=== PATIENT | female | born 1970 | race Caucasian/White ===

== ENCOUNTER 2019-02-08 10:17 | Outpatient (REF) | payer BC, SELFPAY ==
--- NOTE | 2019-02-08 10:00 | PAPFT_PTH ---
PATIENT: Carmen Casillas LOC: [facility] U#:[id number] AGE/SX: 49/F ROOM: RE02/08/[address]: JOSE JUAN Newman : 1970 BED: DIS: 02/08/2019 SPEC #: [id number] RECD: 02/08/19 12:48 STATUS: LAVERNE REQ #: [id number] LESLY: 02/08/19 10:[address]: Nory Varghese DEPT: [facility] Cytology RECD BY: Sylvia Villareal ENTERED: 02/08/19 12:49 SP TYPE: PAPFT OTHR DR: Ivy Troncoso Tissues: 1 - CX/ENDOCX FOR PAP SMEARS Procedures: PAP THIN PREP/UVM Screening HPV DNA PROBE Comments: [id number]
== END 2019-02-08 10:37 ==
LOC: LBN 10:17
PROVIDERS: PCP Nurse Practitioner Family; Visit Provider Nurse Practitioner Family
DX: Z12.4 Encounter for screening for malignant neoplasm of cervix (principal); Z11.51 Encounter for screening for human papillomavirus (HPV)
CPT/HCPCS: 88142; 87624

== ENCOUNTER 2019-03-09 01:40 | Outpatient (CLI) | payer BC, SELFPAY ==
--- NOTE | 2019-03-09 07:30 | DI.MAMMO_ITS ---
EXAM: MAMMO SCREENING CLINICAL HISTORY: Screening, Z12.39. TECHNIQUE: Mammograms were interpreted according to the usual protocol including computer analysis w ith CAD system, tomosynthesis and C-view imaging. COMPARISON: [id number] FINDINGS: The breasts are heterogeneously dense, which may obscure small masses, breast density category C. Th ere are no suspicious masses or microcalcifications. There are no significant changes in comparison w ith the prior images. IMPRESSION: BI-RADS Cat 1 - Negative Breast Density - Category C - Heterogeneously dense
== END 2019-03-09 02:00 ==
PROVIDERS: PCP Nurse Practitioner Family; Visit Provider Nurse Practitioner Family
DX: Z12.31 Encounter for screening mammogram for malignant neoplasm of breast (principal)
CPT/HCPCS: 77063; 77067

== ENCOUNTER 2020-04-07 03:50 | Outpatient (CLI) | payer BC, SELFPAY ==
--- NOTE | 2020-04-07 07:40 | DI.MAMMO_ITS ---
EXAM: MG MAMMO SCREENING CLINICAL HISTORY: screening TECHNIQUE: Bilateral full field digital CC and MLO mammographic images were obtained with 3D tomosyn thesis and utilizing computer aided detection (CAD). COMPARISON: Available for comparison. FINDINGS: Masses/Architectural Distortion: None seen. Microcalcifications: No suspicious pleomorphic-type are seen. Skin Thickening/Nipple Retraction: None. IMPRESSION: 1. No significant interval change with no specific features of malignancy noted. 2. Unless there is more urgent need, screening mammography is recommended, as per [place] guidelines. BI-RADS Category 1 - Negative Breast Density - Category C - Heterogeneously dense The mammogram demonstrates the patient's breast tissue is dense. Dense breast tissue is very common a nd is not abnormal but dense breast tissue can make it harder to find cancer on a mammogram. Also, de nse breast tissue may increase their breast cancer risk. This information about the result of the [facility] mogram report was provided to the patient to raise their awareness. Use this report when you speak wi th the patient about their risks for breast cancer, which includes their family history. At that time , you may recommend for more screening tests (Ultrasound or MRI) as they might be useful based on the ir risk. A negative radiographic report should not delay biopsy if a dominant or clinically suspicious mass is present. Up to ten percent of cancers are not identified on mammography. A negative report may reinforce clinical impression. Adenosis and dense breasts may obscure an underlying neoplasm. False positive reports average 6 to 10%. Patient will receive a letter notifying them of these results.
== END 2020-04-07 04:10 ==
PROVIDERS: PCP Nurse Practitioner Family; Visit Provider Nurse Practitioner Family
DX: Z12.31 Encounter for screening mammogram for malignant neoplasm of breast (principal)
CPT/HCPCS: 77063; 77067

== ENCOUNTER 2020-04-17 15:24 | Outpatient (REF) | payer BC, SELFPAY ==
[2020-04-20 14:49] LABS: Patient Race White; SARS-CoV-2 RNA Undetected (Undetected); SARS-CoV-2 Specimen Source Nasopharynx
== END 2020-04-17 15:44 ==
LOC: NCHCN 15:24
PROVIDERS: PCP Nurse Practitioner Family; Visit Provider Nurse Practitioner Family
DX: Z20.828 Contact with and (suspected) exposure to other viral communicable diseases (principal)
CPT/HCPCS: U0003

== ENCOUNTER 2020-05-18 02:19 | Outpatient (CLI) | payer BC, SELFPAY ==
[2020-05-19 14:50] LABS: COVID-19 RT-PCR UVMMC Result Negative (Negative)
== END 2020-05-18 02:39 ==
PROVIDERS: PCP Nurse Practitioner Family; Visit Provider Surgery
DX: Z11.59 Encounter for screening for other viral diseases (principal); Z01.818 Encounter for other preprocedural examination
CPT/HCPCS: U0003

== ENCOUNTER 2020-05-22 07:57 | Day surgery (SDC) | payer BC, SELFPAY ==
--- NOTE | 2020-05-22 06:54 | W.COLOREPORT ---
Date of service: 05/22/20 Time of Service: : Colonoscopy Report Date of procedure: 05/22/20 Pre-op diagnosis general: Colon Cancer Screening Post-op diagnosis procedure note: other (ascending polyp and mild diverticulosis) Procedure: Colonoscopy with polypectomy Surgeon: Jayleen Cuevas Anesthesia proc note operative: other (General/ASA 2/Noman Lopez CRNA) Estimated blood loss (mL): 3 Pathology: other (Ascending colon polyp) Complications: None Disposition: same day Indications: The patient is here for Colonoscopy pre-op. She has no family history of colon cancer. She has not had any bowel habit changes. -Discussed colonoscopy bowel prep as well as the procedure. Discussed possible complications of the procedure to include bleeding, pain, perforation, missed small lesion/polyp, sore throat, aspiration and adverse reaction to the medications. Questions were answered to patient?s satisfaction. No guarantees were implied or given. Prep: Miralax/Dulcolax Procedure Start Time: : Procedure End Time: :55 Retraction Time: 14 minutes Findings: 1 sessile polyp in the ascending colon oposite the ileocecal valve Procedure Description: After informed consent was obtained the patient was taken to the procedure room and placed in a left decubitous position. Monitors were applied and a time out was done. The patients name, date of , procedure, allergies to medications and metal in their body was reviewed. The patient was then sedated. Once sedated and comfortable a rectal exam was done. External exam was normal. Internal exam revealed a normal sphincter tone and no palpable masses. The scope was then introduced and retro-flexed. No internal hemorrhoids were identified. The scope was then advanced to the cecum without difficulty. The ileocecal valve and appendiceal orifice were identified. The prep was adequate. The scope was then slowly retracted over 14 minutes back into the rectum. Polyps were removed with cold forceps in the ascending colon. The polyp was sessile and <1 cm in size. There was mild diverticulosis of the sigmoid colon. The scope was removed and the patient was woken up and taken back to Same day surgery in stable condition. The patient tolerated the procedure well and there were no immediate complications. Follow up: The patient should follow up in 3-5 years unless they develop changes in bowel habits or other new gastrointestinal complaints.
--- NOTE | 2020-05-22 06:55 | W.PM.DSUDISC ---
Discharge Plan Disposition Patient Disposition: HOME Condition: Good Discharge Details Reason For Visit: Colon Cancer Screening Attending Provider: Jayleen Cuevas Primary Care Provider: Ivy Troncoso Home Meds and New Rx's Prescriptions: Continued sertraline 25 mg tablet 25 mg PO DAILY Qty: 90 RF: 3 Discontinued polyethylene glycol 3350 17 gram/dose powder 238 g PO ONCE Qty: 238 RF: 0 bisacodyl [Dulcolax (bisacodyl)] 5 mg tablet,delayed release (DR/EC) 5 mg PO ONCE Qty: 4 RF: 0 Discharge Instructions Instructions: Colorectal Polyps (DC), Diverticulosis (DC) Additional Instructions: Findings: 1 flat polyp mild diverticulosis Follow up: 3-5 years Please call if you develop: fevers >101.5 Nausea or Vomiting Abdominal pain that is not transient DAY SURGERY UNIT POST ENDOSCOPY INSTRUCTIONS 1. Because there will be medication in your system for the next 24 hours, you may feel a little sleepy. Your coordination will be affected. Therefore: a. Do not drive or operate dangerous equipment for 24 hours. b. Do not drink alcohol beverages for 24 hours (not even beer). c. Plan to go home and rest for the day. 2. Generally there are no restrictions on your activity after a day or so has gone by, but you may feel a bit fatigued for a few days. 3 After you arrive home you may have a light meal and return to a normal diet as you can tolerate it without feeling sick to your stomach. 4. After surgery, you may feel pain or discomfort. This should be only transient, but if it persists please contact your doctor. 5. If there are any questions regarding the findings of your procedure, please feel free to contact your doctor. 6. If you are unable to contact your doctor with a problem, contact the hospital at [phone]. 7. Continue all your regular medications unless directed otherwise. I understand the above instructions and have no questions. Signature of Patient or Responsible Adult Escort Date/Time Name of Responsible Adult Escort Signature of Nurse Date/Time Activity:: Activity as Tolerated Diet:: High Fiber diet Discharge Orders Discharge Orders: Discharge Order (Routine); Ordered 05/22/20 Ordered By: Jayleen Cuevas
[2020-05-22 08:20] VITALS: BP 111/62; PULSE 92; RESP 18; TEMP 36.9; O2SAT 96
[2020-05-22] MEDS: Lactated Ringers 1,000 ML 80 ML IV (08:51)
--- NOTE | 2020-05-22 09:34 | BOWEL_PTH ---
PATIENT: Carmen Casillas LOC: [facility] U#:[id number] AGE/SX: 50/F ROOM: RE05/22/[address]: Jayleen Cuevas MD : 1970 BED: DIS: 05/22/2020 SPEC #: [id number] RECD: 05/22/20 12:54 STATUS: LAVERNE REQ #: [id number] LESLY: 05/22/20 09:[address]: Jayleen Cuevas DEPT: Surgical Specimen RECD BY: Sylvia Villareal ENTERED: 05/22/20 12:54 SP TYPE: Bowel OTHR DR: Ivy Troncoso Tissues: 1 - BIOPSY BOWEL Procedures: GROSS AND MICRO LEVEL 4 Comments: [id number]
[2020-05-22 10:30] VITALS: BP 109/68; PULSE 74; RESP 16; TEMP 36.1; O2SAT 100
== END 2020-05-22 10:47 | disposition home or self-care (01) ==
LOC: SUR 07:57
PROVIDERS: PCP Nurse Practitioner Family; Visit Provider Surgery
PROC: 0DJD8ZZ Inspection of Lower Intestinal Tract, Via Natural or Artificial Opening Endoscopic (ICD-10-PCS; CPT 45378; principal; 2020-05-22 09:30)
DX: Z12.11 Encounter for screening for malignant neoplasm of colon (principal); D12.2 Benign neoplasm of ascending colon; K57.30 Diverticulosis of large intestine without perforation or abscess without bleeding
CPT/HCPCS: 45380; 81025; 88305

== ENCOUNTER 2020-10-23 11:59 | Outpatient (REF) | payer BC, SELFPAY ==
[2020-10-24 11:24] LABS: COVID-19 RT-PCR UVMMC Result Negative (Negative)
== END 2020-10-23 12:00 | disposition home or self-care (01) ==
LOC: NCHCN 11:59
PROVIDERS: PCP Nurse Practitioner Family; Visit Provider Nurse Practitioner Family
DX: Z20.822 Contact with and (suspected) exposure to COVID-19 (principal)
CPT/HCPCS: U0003

== ENCOUNTER 2021-08-30 14:28 | Outpatient (REF) | payer BC, SELFPAY ==
--- NOTE | 2021-08-30 14:00 | PAPFT_PTH ---
PATIENT: Carmen Casillas LOC: [facility] U#:[id number] AGE/SX: 51/F ROOM: RE08/30/[address]: JOSE JUAN Newman : 1970 BED: DIS: 08/30/2021 SPEC #: [id number] RECD: 08/30/21 17:24 STATUS: LAVERNE REQ #: [id number] LESLY: 08/30/21 14:[address]: Nory Varghese DEPT: [facility] Cytology RECD BY: Sylvia Villareal ENTERED: 08/30/21 17:24 SP TYPE: PAPFT OTHR DR: Ivy Troncoso Tissues: 1 - CX/ENDOCX FOR PAP SMEARS Procedures: PAP THIN PREP/UVM Screening HPV DNA PROBE Comments: [id number]
== END 2021-08-30 14:29 | disposition home or self-care (01) ==
LOC: LBN 14:28
PROVIDERS: PCP Nurse Practitioner Family; Visit Provider Nurse Practitioner Family
DX: Z12.4 Encounter for screening for malignant neoplasm of cervix (principal); Z11.51 Encounter for screening for human papillomavirus (HPV)
CPT/HCPCS: 88142; 87624

== ENCOUNTER → 2021-10-02 01:14 | Outpatient (CLI) | payer BC, SELFPAY ==
--- NOTE | 2021-10-02 08:00 | DI.MAMMO_ITS ---
Exam(s) MAMMO SCREENING EXAM: MAMMO SCREENING CLINICAL HISTORY: screening. TECHNIQUE: Bilateral full field digital CC and MLO mammographic images were obtained with 3D tomosyn thesis and utilizing computer aided detection (CAD). COMPARISON: Prior mammograms were reviewed, the most recent being April 2020. FINDINGS: There has been no significant change in the appearance and distribution of the fibroglandular tissue. There is stable architectural distortion related to the prior bilateral reduction surgery. There are no new spiculated masses nor malignant appearing microcalcification groups. There is no significant new architectural distortion nor skin thickening-retraction. IMPRESSION: No radiographic evidence of malignancy. BI-RADS Category 1 - Negative Breast Density - Category B - Scattered areas of fibroglandular density Breast density Category C or D implies that the patient has dense breast tissue. Dense breast tissue can make it harder to find cancer on a mammogram. Dense breast tissue is also associated with an incr eased risk of breast cancer. This information about the result of the mammogram report was provided to the patient to raise their awareness. Use this report when you speak with the patient about their risks for breast cancer, which includes their family history. At that time, you may recommend additional screening tests (Ultrasoun d or MRI) as these tests may add significant information. A negative radiographic report should not delay biopsy if a dominant or clinically suspicious mass is present. Up to ten percent of cancers are not identified on mammography. A negative report may reinforce clinical impression. Adenosis and dense breasts may obscure an underlying neoplasm. False positive reports average 6 to 10%. Patient will receive a letter notifying them of these results.
== END ==
PROVIDERS: PCP Nurse Practitioner Family; Visit Provider Nurse Practitioner Family
DX: Z12.31 Encounter for screening mammogram for malignant neoplasm of breast (principal)
CPT/HCPCS: 77063; 77067

== ENCOUNTER 2022-05-21 18:08 | Outpatient (REF) | payer BC, SELFPAY ==
[2022-05-21 15:22] LABS: Anion Gap 8.2 mmol/L (3-11); BUN 14 mg/dL (7-18); CO2 28.8 mmol/L (21.0-32.0); CREATININE 0.8 mg/dL (0.55-1.02); Calcium 9.6 mg/dL (8.5-10.1); Calculated LDL 141 mg/dL (<100); Chloride 98 mmol/L (98-107); Cholesterol 209 mg/dL (<200); Estimated GFR 88.05 (mL/min/1.73m2); Glucose 96 mg/dL (74-106); HDL Cholesterol 50 mg/dL (40-60); Potassium 4.2 mmol/L (3.5-5.1); Sodium 135 mmol/L (136-145); Triglyceride 93 mg/dL (<150)
[2022-05-22 09:33] LABS: HIV-1/2 Ag & Ab Screen Negative (Negative)
[2022-05-22 09:35] LABS: Hepatitis C Ab w Rflx HCV PCR Negative (Negative)
== END 2022-05-21 18:09 | disposition home or self-care (01) ==
LOC: NCHCN 18:08
PROVIDERS: PCP Nurse Practitioner Family; Visit Provider Nurse Practitioner Family
DX: E66.9 Obesity, unspecified (principal); K30 Functional dyspepsia; N39.3 Stress incontinence (female) (male); Z11.4 Encounter for screening for human immunodeficiency virus [HIV]; F41.9 Anxiety disorder, unspecified; Z11.59 Encounter for screening for other viral diseases
CPT/HCPCS: 80048; 80061; 86803; 87389; 83036

== ENCOUNTER → 2023-03-05 02:46 | Outpatient (CLI) | payer BC, SELFPAY ==
--- NOTE | 2023-03-05 08:06 | DI.MAMMO_ITS ---
Exam(s) MAMMO SCREENING EXAM: MAMMO SCREENING CLINICAL HISTORY: SCREENING, Z12.39. TECHNIQUE: Bilateral full field digital CC and MLO mammographic images were obtained with 3D tomosyn thesis and utilizing computer aided detection (CAD). COMPARISON: Prior mammograms were reviewed. FINDINGS: There has been no significant change in the appearance and distribution of the fibroglandular tissue. Some architectural distortion related to prior bilateral reduction surgery is again noted. Asymmetric fibroglandular densities in both breasts remains unchanged from prior studies. There are no new spiculated masses nor malignant appearing microcalcification groups. There is no significant architectural distortion nor skin thickening-retraction. IMPRESSION: No radiographic evidence of malignancy. BI-RADS Category 1 - Negative Breast Density - Category B - Scattered areas of fibroglandular density Breast density Category C or D implies that the patient has dense breast tissue. Dense breast tissue can make it harder to find cancer on a mammogram. Dense breast tissue is also associated with an incr eased risk of breast cancer. This information about the result of the mammogram report was provided to the patient to raise their awareness. Use this report when you speak with the patient about their risks for breast cancer, which includes their family history. At that time, you may recommend additional screening tests (Ultrasoun d or MRI) as these tests may add significant information. A negative radiographic report should not delay biopsy if a dominant or clinically suspicious mass is present. Up to ten percent of cancers are not identified on mammography. A negative report may reinforce clinical impression. Adenosis and dense breasts may obscure an underlying neoplasm. False positive reports average 6 to 10%. Patient will receive a letter notifying them of these results.
== END ==
PROVIDERS: PCP Nurse Practitioner Family; Visit Provider Nurse Practitioner Family
DX: Z12.31 Encounter for screening mammogram for malignant neoplasm of breast (principal)
CPT/HCPCS: 77063; 77067

== ENCOUNTER 2023-05-05 07:33 | Day surgery (SDC) | payer BC, SELFPAY ==
--- NOTE | 2023-05-04 14:36 | PDOC.DSDIS_ITS ---
Date of service: 05/05/23 Time of Service: 09:16 Discharge Plan Disposition Patient Disposition: Home Condition: Good Discharge Details Reason For Visit: Screening colonoscopy Attending Provider: Mauricio Petty Primary Care Provider: Ivy Troncoso Home Meds and New Rx's Prescriptions: Continued Mirena 20 mcg/24 hours (7 yrs) 52 mg intrauterine device 1 device intrauterine ONCE Qty: 1 0RF Rx Instructions: as a single dose metformin 1,000 mg tablet 1,000 mg PO BID sertraline 50 mg tablet See Rx Instructions .ROUTE .COMPLEX Qty: 90 0RF Dose Instruction: TAKE ONE TABLET BY MOUTH EVERY DAY Rx Instructions: TAKE ONE TABLET BY MOUTH EVERY DAY omeprazole 20 mg capsule,delayed release(DR/EC) 20 mg PO DAILY Discontinued bisacodyl [Dulcolax (bisacodyl)] 5 mg tablet,delayed release (DR/EC) 5 mg PO ONCE Qty: 4 0RF polyethylene glycol 3350 17 gram/dose powder 17 g PO DAILY Qty: 238 0RF Discharge Instructions Instructions: Diverticulosis (GEN), Colorectal Polyps (GEN), Diverticulosis Diet (GEN) Additional Instructions: Carmen, we were able to complete your colonoscopy today without any difficulty. You have a little bit of diverticulosis. Diverticula are weak spots in the colon wall that many patients accumulate as we get older. The best way to manage them is to maintain a diet that is rich in fiber, and avoid symptoms of constipation. I have attached some general information here regarding diverticulosis. I did also find 1 polyp. I removed this completely. It has been sent to pathology for their official review regarding the nature of the polyp. And that information will be used to determine the timing of your n ext colonoscopy. If you have any questions in the meantime, please do not hesitate to call at any point. 1. If tolerated, consume a soft, low fiber diet for 1-2 days. 2. Do not drive, drink alcohol, operate machinery, make critical decisions, or do activities that require coordination or balance for 24 hours. 3. Because air was put into your colon during the procedure, expelling air from your rectum (passing gas or farting) is normal. 4. You may not have a bowel movement for 1-3 days because of the colonoscopy prep. This is normal. 5. Go directly to the emergency room if you notice any of the following: Develop chills (warm to touch), or if you have a thermometer and your temperature is above 101 Difficulty breathing or difficultly swallowing Persistent vomiting Severe abdominal pain, other than gas cramps Severe chest pain Black, tarry stools Any bleeding ? exceeding one tablespoon 6. Call your physician if the site where your intravenous was started becomes red, swollen, painful, and warm to touch. 7. Your physician has reviewed your pre-procedure medications. Please continue to take those medications as previously ordered. You will be given specific information/education regarding any changes to your medications before leaving. Activity:: Activity as Tolerated Diet:: As Tolerated Discharge Orders Discharge Orders: Discharge Order (Routine); Ordered 05/04/23 Ordered By: Mauricio Petty DS: Diagnosis Discharge Diagnosis (1) Serrated adenoma of colon: Status: Acute Asessment and Plan: Follow-up on polypectomy results
--- NOTE | 2023-05-04 14:38 | W.COLOREPORT ---
Date of service: 05/05/23 Time of Service: 09:18 Colonoscopy Report Date of procedure: 05/05/23 Pre-op diagnosis general: screening colonoscopy Post-op diagnosis procedure note: other (Diverticulosis, cecal polyp) Procedure: Colonoscopy with polypectomy Surgeon: Mauricio Petty Anesthesia Type: General:No Airway Estimated blood loss (mL): 5 Pathology: other (0.75 cm cecal polyp) Complications: None Disposition: same day Indications: Carmen is a 53 year old woman with a history of sessile serrated adenoma who needs her next screening colonoscopy Prep: Miralax/Dulcolax Procedure Start Time: 08:49 Procedure End Time: 09:07 Retraction Time: 13 Findings: 0.75 cm flat cecal polyp Procedure Description: After the induction of monitored anesthetic care, and with the patient in left lateral decubitus position, I began by performing an external anorectal exam.? Perineum and skin were normal, as was the anal verge.? There was no evidence of external hemorrhoids.? Next, I performed a digital rectal exam.? I did not appreciate any abnormal findings.? Next, I advanced a colonoscope into the rectal vault.? I performed retroflexion.? This appeared normal.? Using insufflation, I then advanced the colonoscope beyond the rectal folds and into the sigmoid colon before advancing towards the cecum.? In the upper portion of the cecum, essentially where it transitions into the ascending colon was a 0.75 cm flat polyp. I removed this with cold snare polypectomy. There was no significant bleeding.? The scope was noted to be in the cecum by identification of the ileocecal valve and appendiceal orifice.? I then began withdrawing the colonoscope using repeated irrigation as necessary for full evaluation of the colonic mucosa. There was some sigmoid diverticulosis. ?Once the scope was withdrawn to the level of the rectum, great care was taken to examine portions of the rectal folds.? Finally, the scope was withdrawn and the patient was brought to the same-day surgery recovery unit as the anesthetic wore off. ?The findings and instructions were shared with the patient prior to discharge. [place] Bowel Prep [place] Bowel Prep Right Colon: 3 Left Colon: 3 Transverse Colon: 3 Total Score: 9
[2023-05-05 08:01] VITALS: BP 113/64; PULSE 84; RESP 20; TEMP 37; O2SAT 98
--- NOTE | 2023-05-05 08:28 | W.ANESPRE ---
General Info Date of Service Date Performed: 05/05/23 Height: 5 ft 1 in Weight: 83.915 kg Body Mass Index (BMI): 34.9 Surgical Procedure: Operation Date: 05/05/23 09:05 Proposed Procedure Side Surgeon p Colonoscopy Mauricio Petty MD Meds Allergies and Home Medications Allergies Allergy/AdvReac Type Severity Reaction Status Date / Time No Known Allergies Allergy Verified 05/05/23 08:00 Home Medication Medication Instructions Recorded levonorgestrel 21 mcg/24 hours (8 1 device intrauterine ONCE #1 ea 10/19/21 yrs) 52 mg intrauterine device (Mirena) sertraline 50 mg tablet See Rx Instructions .Route 12/10/22 .COMPLEX #90 tabs omeprazole 20 mg capsule,delayed 20 mg PO DAILY 03/31/23 release metformin 1,000 mg tablet 1,000 mg PO BID 04/17/23 Current Visit Medications: Current Medications Generic Name Dose Route Start Last Admin Trade Name Freq PRN Reason Stop Dose Admin Hyoscyamine Sulfate 0.125 mg 05/04/23 14:40 Hyoscyamine 0.125 Mg Sl/Oral/Chew SL 06/03/23 14:39 DIRECTED PRN Ringer's Solution 1,000 mls @ 80 mls/hr 05/05/23 06:00 IV 05/05/23 23:59 INFUSION [facility] IV Miscellaneous Supplies 1 each 05/05/23 06:00 Iv Access IV 05/05/23 23:59 DIRECTED MARVIN Ondansetron HCl 4 mg 05/04/23 14:40 Ondansetron 4 Mg/2 Ml Vial IVP 06/03/23 14:39 Q4H PRN PRN Nausea / Vomiting Sodium Chloride 0 ml 05/05/23 06:00 Normal Saline Flush 10 Ml Syr IV 05/05/23 23:59 PRN PRN Sodium Chloride 0 ml 05/05/23 06:00 Normal Saline 10 Ml Vial IJ 05/05/23 23:59 DIRECTED PRN Sterile Water 0 ml 05/05/23 06:00 Water,Injection,Sterile 10 Ml Vial IJ 05/05/23 23:59 DIRECTED PRN PFSH Active Problems Active Problems: Problem Status Onset Code Dyspepsia R10.13 Serrated adenoma of colon D12.6 Small bowel obstruction K56.609 Tobacco use 10/25/14 Z72.0 Medical History Medical History Anxiety Leg cramps Smoker Stress incontinence Medical History Comments:: Needle Phobia no PONV with last colonoscopy Surgical History Surgical History History of bunionectomy Reduction mammoplasty (~2003) Tobacco Smoking/Tobacco Use Status: Current every day Tobacco Type: cigarettes Alcohol Alcohol Intake: current Alcohol intake frequency: a few times a week Substance Use Substance use: Never Substance use type: does not use Vital Signs and Lab Results Vital Signs Most Recent Vital Signs in EMR: Most Recent Vital Signs Temp Pulse Resp BP Pulse Ox 37.0 C 84 20 113/64 98 05/05/23 08:01 05/05/23 08:01 05/05/23 08:01 05/05/23 08:01 05/05/23 08:01 Point of Care Results Point of Care Results: Finger Stick Blood Glucose 110 05/05/23 08:01 Lab Results Blood Type / Crossmatch: No Data to Display Complete Blood Count: No Data to Display Complete Metabolic Panel: No Data to Display Liver Function Panel: No Data to Display Coagulation Panel: No Data to Display Cardiac Panel: No Data to Display Arterial Blood Gas: No Data to Display Venous Blood Gas: No Data to Display Pancreas Panel: No Data to Display Thyroid Panel: No Data to Display Infectious Disease: No Data to Display Blood Cultures: No Data to Display Toxicology Panel: No Data to Display Panel: No Data to Display Anesthesia Assessment and Plan Anesthesia History Personal History: PONV Family History: No Family History of Anesthesia Complications Exercise Tolerance Exercise Tolerance: Metabolic Equivalents>4 Pertinent Negatives Pertinent Negatives: No Symptoms of GERD, No Major Cardiovascular Symptoms or Complaints, No Major Pulmonary Symptoms or Complaints and No History of CVA/TIA Cardiac & Pulmonary Exam Cardiac Exam: Normal S1/S2 Heart Sounds Pulmonary Exam: Clear Bilateral Breath Sounds Implantable Cardiac Device Does patient have a Pacemaker or an ICD?: No Airway Exam Known Difficult Airway: No Mallampati Class: 2 Mouth Opening: Normal (> 3cm) Thyromental Distance: Greater than 3 cm Neck Range of Motion: Full ROM Neck Circumference: Normal Teeth Condition: Normal Dentition ASA Classification ASA Score: ASA 2 Emergency Case?: No NPO Status NPO Status: NPO Clears >2 hours, Solids >8 hours Status Status: Negative HCG Anesthesia Plan Resuscitation Status: Full Code Anesthesia Technique: General Anesthesia Airway Planned: Natural Airway Monitors Used: Standard Monitors
[2023-05-05] MEDS: Lactated Ringers 1,000 ML 80 ML IV (08:35)
[2023-05-05 08:45] VITALS: BMI 34.9
--- NOTE | 2023-05-05 09:00 | BOWEL_PTH ---
PATIENT: Carmen Casillas LOC: [facility] U#:[id number] AGE/SX: 53/F ROOM: RE05/05/[address]: Mauricio Petty MD : 1970 BED: DIS: 05/05/2023 SPEC #: [id number] RECD: 05/05/23 12:05 STATUS: LAVERNE REQ #: [id number] LESLY: 05/05/23 09:[address]: Mauricio Petty DEPT: Surgical Specimen RECD BY: Sylvia Villareal ENTERED: 05/05/23 12:05 SP TYPE: Bowel OTHR DR: Ivy Troncoso Tissues: 1 - BIOPSY BOWEL Procedures: GROSS AND MICRO LEVEL 4 Comments: [id number]
[2023-05-05 09:22] VITALS: BP 90/62; PULSE 80; RESP 16; TEMP 36.4; O2SAT 93
[2023-05-05 09:37] VITALS: BP 99/67; PULSE 72; RESP 18; O2SAT 96
--- NOTE | 2023-05-05 09:39 | W.ANESPOSTOP ---
Postoperative Evaluation Date, Time and Location Date Performed: 05/05/23 Time Performed: 09:24 Patient Location: Day Surgery Unit Vital Signs Most Recent Imported Vital Signs: Most Recent Vital Signs Temp Pulse Resp BP Pulse Ox 36.4 C L 72 18 99/67 L 96 05/05/23 09:22 05/05/23 09:37 05/05/23 09:37 05/05/23 09:37 05/05/23 09:37 Pain Score Most Recent Pain Score: Most Recent Pain Score Pain Level 0 05/05/23 09:37 Assessment Mental Status: Awake (Alert & Oriented to Patient Baseline) Airway and Respiratory Function: Patent airway with normal (patient baseline) respiratory exam Cardiovascular Function: Hemodynamically Stable Hydration Status: Adequately Hydrated Nausea & Vomiting: No Nausea or Vomiting Pain: Pt. Denies Any Pain Peripheral Nerve Block: Patient did not receive a nerve block
[2023-05-05 10:01] VITALS: BP 101/99; PULSE 78; RESP 16; O2SAT 98
== END 2023-05-05 10:20 | disposition home or self-care (01) ==
PROVIDERS: PCP Nurse Practitioner Family; Visit Provider Surgery
PROC: 0DJD8ZZ Inspection of Lower Intestinal Tract, Via Natural or Artificial Opening Endoscopic (ICD-10-PCS; CPT 45378; principal; 2023-05-05 09:00)
DX: Z12.11 Encounter for screening for malignant neoplasm of colon (principal); D12.0 Benign neoplasm of cecum; K57.30 Diverticulosis of large intestine without perforation or abscess without bleeding; Z72.0 Tobacco use
CPT/HCPCS: 45385; 81025; 88305; J2001

== ENCOUNTER 2023-11-18 09:20 | Outpatient (REF) | payer BC, SELFPAY ==
[2023-11-18 15:22] LABS: Hemoglobin A1C 5.9 % (<5.7)
[2023-11-18 15:42] LABS: ALT 24 U/L (14-59); AST 18 U/L (15-37); Albumin 3.8 g/dL (3.4-5.0); Alkaline Phosphatase 87 U/L (46-116); Anion Gap 5.2 mmol/L (3-11); BUN 11 mg/dL (7-18); Bilirubin, Total 0.4 mg/dL (0.2-1.0); CO2 31.8 mmol/L (21.0-32.0); CREATININE 0.7 mg/dL (0.55-1.02); Calcium 9.4 mg/dL (8.5-10.1); Calculated LDL 139 mg/dL (<100); Chloride 104 mmol/L (98-107); Cholesterol 200 mg/dL (<200); Estimated GFR 102.71 (mL/min/1.73m2); Glucose 105 mg/dL (74-106); HDL Cholesterol 51 mg/dL (40-60); Magnesium 2.2 mg/dL (1.8-2.4); Sodium 141 mmol/L (136-145); Total Protein 6.9 g/dL (6.4-8.2); Triglyceride 50 mg/dL (<150); Vitamin B12 729 pg/mL (193-986)
== END 2023-11-18 09:21 | disposition home or self-care (01) ==
LOC: NCHCN 09:20
PROVIDERS: PCP Nurse Practitioner Family; Visit Provider Nurse Practitioner Family
DX: E78.5 Hyperlipidemia, unspecified (principal); R73.03 Prediabetes; K30 Functional dyspepsia; Z79.899 Other long term (current) drug therapy
CPT/HCPCS: 80053; 80061; 82607; 83036; 83735

== ENCOUNTER 2024-06-08 01:21 | Outpatient (CLI) | payer BC, SELFPAY ==
--- NOTE | 2024-06-08 07:45 | DI.MAMMO_ITS ---
Exam(s) MAMMO SCREENING EXAM: MAMMO SCREENING CLINICAL HISTORY: Screening, Z12.31 TECHNIQUE: Bilateral full field digital CC and MLO mammographic images were obtained with 3D tomosyn thesis and utilizing computer aided detection (CAD). COMPARISON: Available for comparison. FINDINGS: Masses/Architectural Distortion: None seen. Microcalcifications: No suspicious pleomorphic-type are seen. Skin Thickening/Nipple Retraction: None. IMPRESSION: 1. No significant interval change with no specific features of malignancy noted. 2. Unless there is more urgent need, screening mammography is recommended, as per [employer] [place] [employer] guidelines. BI-RADS Category 1 - Negative Breast Density - Category B - Scattered areas of fibroglandular density Breast density category C or D implies that the patient has dense breast tissue. Dense breast tissue is very common and is not abnormal but dense breast tissue can make it harder to find cancer on a ma mmogram. Also, dense breast tissue may increase their breast cancer risk. This information about the result of the mammogram report was provided to the patient to raise their awareness. Use this report when you speak with the patient about their risks for breast cancer, which includes their family hist ory. At that time, you may recommend for more screening tests (Ultrasound or MRI) as they might be us eful based on their risk. A negative radiographic report should not delay biopsy if a dominant or clinically suspicious mass is present. Up to ten percent of cancers are not identified on mammography. A negative report may reinforce clinical impression. Adenosis and dense breasts may obscure an underlying neoplasm. False positive reports average 6 to 10%. Patient will receive a letter notifying them of these results.
== END 2024-06-08 01:41 ==
LOC: DI 01:21
PROVIDERS: PCP Nurse Practitioner Family; Visit Provider Nurse Practitioner Family
DX: Z12.31 Encounter for screening mammogram for malignant neoplasm of breast (principal); R92.323 Mammographic fibroglandular density, bilateral breasts
CPT/HCPCS: 77063; 77067

== ENCOUNTER 2024-07-21 12:17 | Outpatient (REF) | payer BC, SELFPAY | END 2024-07-21 12:18 | disposition home or self-care (01) | LOC: NCHCN 12:17 | PROVIDERS: PCP Nurse Practitioner Family; Visit Provider Nurse Practitioner Family | DX: R73.03 Prediabetes (principal) | CPT/HCPCS: 83036 ==

== ENCOUNTER 2025-03-24 03:34 | Outpatient (CLI) | payer BC, SELFPAY ==
[2025-03-24] MEDS: Inhaler, Assist Device 1 EACH MC (10:39)
[2025-03-24] MEDS: Levalbuterol HFA 15 GM INH 4 PUFF IH (10:40)
--- NOTE | 2025-03-24 12:44 | W.PFT ---
Date of service: 03/24/25 Time of Service: 09:07 Pulmonary Function Test Result Indications: Emphysema Impression 1. Good patient effort was noted. ATS standards for reproducibility were met. 2. Normal spirometry. 3. Following the administration of a bronchodilator there was not a significant response 4. TLC was normal. No evidence of restrictive lung disease 5. DLCO was normal indicating normal alveolar gas exchange
== END 2025-03-24 03:35 | disposition home or self-care (01) ==
LOC: RT 03:34
PROVIDERS: PCP Nurse Practitioner Family; Visit Provider Internal Medicine Pulmonary Disease
DX: J43.9 Emphysema, unspecified (principal); R91.8 Other nonspecific abnormal finding of lung field
CPT/HCPCS: 94060; 94726; 94729